=== PATIENT | male | born 1970 | race Caucasian/White ===

== ENCOUNTER 2019-09-14 22:07 | Emergency (ER) | payer OTHER ==
[2019-09-14] MEDS ORDERED: 0.9 % SODIUM CHLORIDE 1000ML 1,000 ML IV SCH (22:15)
[2019-09-14] MEDS ORDERED: ONDANSETRON HCL IV 4 MG/2 ML VIAL IVP ONE (22:15)
[2019-09-14] MEDS ORDERED: KETOROLAC 30 MG/ML VIAL IVP ONE (22:19)
--- NOTE | 2019-09-14 22:26 | Emergency Department Record ---
History of Present Illness - General Chief complaint: Nausea, Vomiting, Diarrhea Stated complaint: KIDNEY PAIN Time Seen by Provider: 09/14/19 22:10 Source: Patient Mode of Arrival: Ambulatory Limitations: No limitations - History of Present Illness Initial comments: 49 yo male presents to ED for evaluation of right sided low-back pain symptoms that began 2-3 days ago. Patient reports nausea and vomiting symptoms for the past 3 days, low-grade fevers. Patient denies abdominal pain symptoms, reports that he saw his PCP 2 days ago and reports negative influenza. Patient reports diffuse body aches as well. Patient denies health problems at his baseline. MD complaint: Nausea, Vomiting Onset/Timin -: Days(s) Associated Abdominal Pain: No Radiation: None Severity: Moderate Quality: Aching Consistency: Constant Improves with: None Worsens with: None Associated Symptoms: Fever/chills, Myalgias, Nausea/vomiting - Related Data Home Medications Medication Instructions Recorded Confirmed Last Taken Omeprazole 1 cap PO DAILY 09/14/19 09/14/19 Unknown Allergies Allergy/AdvReac Type Severity Reaction Status Date / Time No Known Drug Allergies Allergy Verified 09/14/19 22:37 Review of Systems Constitutional: Reports: Fever. Denies: Chills, Malaise, Night sweats Eyes: Denies: Eye discharge, Eye pain ENT: Denies: Congestion, Ear pain, Epistaxis Respiratory: Denies: Cough, Dyspnea Cardiovascular: Denies: Chest pain, Dyspnea on exertion Endocrine: Reports: Fatigue. Denies: Heat or cold intolerance Gastrointestinal: Reports: Diarrhea, Nausea, Vomiting. Denies: Abdominal pain, Constipation Genitourinary: Denies: Incontinence, Retention Musculoskeletal: Reports: Back pain. Denies: Arthralgia Skin: Denies: Bruising, Change in color Neurological: Denies: Abnormal gait, Confusion, Headache, Seizure Psychiatric: Denies: Anxiety Hematological/Lymphatic: Denies: Anemia, Blood Clots Physical Exam - General General Appearance: Alert, Oriented x3, Cooperative, Mild distress Limitations: No limitations - Head Head exam: Atraumatic, Normocephalic, Normal inspection Head exam detail: negative: Abrasion, Contusion, Figueroa's sign, General tenderness, Hematoma, Laceration - Eye Eye exam: Normal appearance. negative: Conjunctival injection, Periorbital swelling, Periorbital tenderness, Scleral icterus - ENT Ear exam: negative: Auricular hematoma, Auricular trauma Nasal Exam: negative: Active bleeding, Discharge, Dried blood, Foreign body Mouth exam: negative: Drooling, Laceration, Muffled voice, Tongue elevation - Neck Neck exam: Normal inspection. negative: Meningismus, Tenderness - Respiratory Respiratory exam: Normal lung sounds bilaterally. negative: Rales, Respiratory distress, Rhonchi, Stridor - Cardiovascular Cardiovascular Exam: Regular rate, Normal rhythm, Normal heart sounds - GI/Abdominal GI/Abdominal exam: Soft, Tenderness (Mild TTP RUQ, mild TTP LLQ, no rebound, no guarding.). negative: Rebound, Rigid - Rectal Rectal exam: Deferred - exam: Deferred - Extremities Extremities exam: Normal inspection. negative: Pedal edema, Tenderness - Back Back exam: Reports: Paraspinal tenderness (Right para-vertebral TTP lumbar region). Denies: CVA tenderness (R), CVA tenderness (L) - Neurological Neurological exam: Alert, Normal gait, Oriented X3 - Psychiatric Psychiatric exam: Normal affect, Normal mood - Skin Skin exam: Normal color. negative: Abrasion Type of lesion: negative: abrasion Course Vital Signs 09/14/19 22:16 Temperature 99.1 F Pulse Rate [ 97 H Right] Respiratory 20 Rate Blood Pressure 112/71 [Left Arm] Pulse Ox 94 L - Reevaluation(s) Reevaluation #1: 09/14/19 23:30 Laboratory studies were reviewed and appear grossly unremarkable for an acute process except for the following: Potassium 3.1 AST 73 AST 64 No evidence of infection in review of the patient's urine. Potassium ordered to be given PO as well. Reevaluation #2: 09/14/19 23:39 CT Abdomen and Pelvis: No acute abnormalities. Reevaluation #3: 09/15/19 00:02 CXR: No acute process Patient was updated on all results, reports improvement in his symptoms, and appears stable for discharge at this time. Patient has both Phenergan and Zofran as needed for residual nausea/vomiting symptoms. Medical Decision Making - Lab Data Result diagrams: 09/14/19 22:46 09/14/19 22:46 Disposition Disposition: Discharge Clinical Impression: Nausea & vomiting Qualifiers: Vomiting type: unspecified Vomiting Intractability: unspecified Qualified Code(s): R11.2 - Nausea with vomiting, unspecified Disposition: Home, Self-Care Condition: (2) Stable Instructions: Acute Nausea and Vomiting (ED) Additional Instructions: Return to ED if your symptoms worsen or if you have any concerns. Continue Zofran/Phenergan as directed. Follow-up with your family doctor in 3-5 days as directed. Forms: Patient Portal Access Time of Disposition: 00:06 Quality - Quality Measures Quality Measures: N/A - Blood Pressure Screening Does Patient Have Any of the Following: No Blood Pressure Classification: Normal BP Reading Systolic Measurement: 112 Diastolic Measurement: 71 Screening for High Blood Pressure: < Normal BP, F/U Not Required > [[id number]]
[2019-09-14 22:57] LABS: ABSOLUTE NEUTROPHIL COUNT 6.27; BASO % 0.1 % (0-6); HEMATOCRIT 42.1 % (42.0-52.0); HEMOGLOBIN 14.1 gm/dl (14.0-18.0); LYMPH % 2.3 % (16-45); MEAN CELL VOLUME 87.3 fl (81-97); MEAN CORPUSCULAR HEMOGLOBIN 29.3 pg (27-33); MEAN CORPUSCULAR HGB CONC 33.5 g/dl (32-36); MEAN PLATELET VOLUME 10.4 fl (7.4-10.4); MONO % 7.4 % (0-9); PLATELET COUNT 137 K/uL (130-400); RED BLOOD COUNT 4.82 M/uL (4.40-5.70); RED CELL DISTRIBUTION WIDTH 13.1 % (11.5-14.5)
[2019-09-14 23:04] LABS: URINE APPEARANCE CLEAR; URINE BILIRUBIN SMALL (NEGATIVE); URINE BLOOD TRACE-I (NEGATIVE); URINE COLOR BROWN; URINE GLUCOSE (UA) NEGATIVE (NEGATIVE); URINE KETONE NEGATIVE (NEGATIVE); URINE LEUKOCYTE ESTERASE NEGATIVE (NEGATIVE); URINE NITRITE NEGATIVE (NEGATIVE)
[2019-09-14 23:06] LABS: URINE RBC 0 - 2 (NONE SEEN); URINE WBC 0 - 2 (0-2/hpf)
[2019-09-14 23:07] LABS: URINE HYALINE CAST 0 - 5 /lpf
[2019-09-14 23:14] LABS: BLOOD UREA NITROGEN 11 mg/dL (6-20); CREATININE 1.1 mg/dL (0.7-1.2); EST GLOMERULAR FILTRATION RATE > 60 mL/min; TOTAL PROTEIN 6.8 g/dL (6.6-8.7)
[2019-09-14 23:15] LABS: LIPASE 34 U/L (13-60)
[2019-09-14 23:16] LABS: GLUCOSE,RANDOM 125 mg/dL (74-109)
[2019-09-14 23:19] LABS: ALB/GLOB RATIO 1.3 (1.1-1.8); ALBUMIN 3.8 g/dL (4.0-5.0); ALKALINE PHOSPHATASE 116 U/L (40-129); ALT/SGPT 64 U/L (<41); AST/SGOT 73 U/L (10.0-50.0)
[2019-09-14] MEDS ORDERED: POTASSIUM BICARB./CIT AC 25 MEQ EFF.TAB PO STA (23:31)
--- NOTE | 2019-09-14 23:36 | CT SCAN REPORT ---
EXAMINATION: CT Abdomen and Pelvis with IV Contrast EXAM DATE: 09/14/2019 11:28 PM TECHNIQUE: CT imaging of the abdomen and pelvis was performed with intravenous contrast. Coronal and sagittal images were reconstructed. IV Contrast: The amount and type of contrast are recorded in the medical record. INDICATION: Right flank pain COMPARISON: None ENCOUNTER: Not applicable CT ABDOMEN AND PELVIS FINDINGS: Lung Bases: Included extent of the lung bases are clear. Hepatobiliary: The liver has a normal size with a smooth surface. The hepatic and portal veins appear patent. There are multiple small renal cysts. There is no biliary dilatation and the gallbladder is unremarkable. Pancreas: The pancreas is normal. Spleen: The spleen is not enlarged. Adrenals: The adrenal glands are normal. Kidneys, Ureters, & Bladder: Both kidneys have a normal size and there is no hydronephrosis. There ar e a few small scattered renal cysts. Both ureters have a normal caliber and the urinary bladder is un remarkable. Gastrointestinal: The stomach and small bowel are normal with no obstruction or inflammation. The melony endix is surgically absent. The large bowel is normal. Reproductive Organs: Prostate calcifications are present. Lymphatic System: There is no adenopathy within the abdomen or pelvis. Vasculature: Normal caliber abdominal aorta. Peritoneum: No free fluid, free air, or inflammation Abdominal Wall & Musculoskeletal: No suspicious bone lesions. 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 IMPRESSION: 1. No evidence of significant acute abnormalities. Dictated by: Elina Issa MD on 09/14/2019 11:30 PM. .
--- NOTE | 2019-09-14 23:54 | RADIOLOGY REPORT ---
EXAMINATION: Two View Chest Radiographs EXAM DATE: 09/14/2019 11:51 PM TECHNIQUE: Frontal and lateral views INDICATION: fever, vomiting COMPARISON: None ENCOUNTER: Not applicable FINDINGS: The heart, mediastinum, and pulmonary vasculature are normal. No lung consolidation or pleural effu sions are present. IMPRESSION: No acute cardiopulmonary disease is present. Dictated by: Jeff Torres MD on 09/14/2019 11:51 PM. .
== END 2019-09-15 00:25 | disposition home or self-care (01) ==
LOC: ER 22:07
DX: R11.2 Nausea with vomiting, unspecified (principal); R19.7 Diarrhea, unspecified; M54.5 Low back pain; R50.81 Fever presenting with conditions classified elsewhere
CPT/HCPCS: 99284 ×2; 96374; 96375; 96361; 83690; 80053; 81001; 85027; 71046; 74177; Q9967; J1885; J2405; J7030